=== PATIENT | male | born 1980 | race Caucasian/White ===

== ENCOUNTER 2021-06-30 09:23 | Emergency (ER) | payer OTHER ==
[~2021-06-30] VITALS: Ht 165.1 cm; Wt 68.0 kg
[~2021-06-30 09:23] MED LIST: CLON0.5T PO
[2021-06-30 09:40] VITALS: BP 119/75
[2021-06-30] MEDS ORDERED: LORazepam 1 MG TABLET PO ONE (09:45)
[2021-06-30] MEDS ORDERED: LORA-254 PO (09:57)
--- NOTE | 2021-06-30 09:59 | PHYS DOC ---
Past History Past Medical History: Anxiety (STEFANY SAPP) Past Surgical History: Other (STEFANY SAPP) Smoking: Less than 1pk/day Alcohol Use: Occasionally Drug Use: None (STEFANY SAPP) General Adult EDM: Chief Complaint: MEDICATION REFILL HPI: HPI: Patient is a 40 year old male with history of anxiety who presents with complaints of breakthrough anxiety. Patient was discharged from a psychiatric facility in [place], [place] on 06/06/2021. Patient was discharged with daily medications, but states he threw them away a few days ago. He reports he wanted to "prove to himself he could do it without help." Today, he has complaints of overwhelming anxiety. Patient has a plan to refill his medications once he leaves the department today. He denies SI and HI. Patient has no other complaints at this time. (STEFANY SAPP) Review of Systems: Review of Systems: Constitutional: Denies fever or chills Respiratory: Denies cough or shortness of breath Cardiovascular: Denies chest pain or edema GI: Denies abdominal pain, nausea, vomiting, bloody stools or diarrhea Musculoskeletal: Denies back pain or joint pain Integument: Denies rash or other lesions Neurologic: Denies headache, focal weakness or sensory changes Psychiatric: See HPI (STEFANY SAPP) Allergies: Allergies: Allergies Coded Allergies Type Severity Reaction Last Updated Verified No Known Drug Allergies 10/26/13 No (STEFANY SAPP) Physical Exam: PE: Constitutional: Well developed, well nourished, no acute distress, non-toxic appearance. Cardiovascular:Heart rate regular rhythm, no murmur. Lungs & Thorax: Bilateral breath sounds clear to auscultation. Abdomen: Bowel sounds normal, soft, no tenderness, no masses, no pulsatile masses. Skin: Warm, dry, no erythema, no rash. Extremities: No tenderness, no cyanosis, no clubbing, ROM intact, no edema. Neurologic: Alert and oriented x3, normal motor function, normal sensory function, no focal deficits noted. Psychologic: Patient has fair insight with expressed hope/desire for treatment, good judgement, anxious mood. (STEFANY SAPP) Heart Score: C/O Chest Pain: No (STEFANY SAPP) Course & Med Decision Making: Course & Med Decision Making Pertinent Labs and Imaging studies reviewed. (See chart for details) Patient is not exactly sure of his as needed medications with the doses. He r eports his plan after leaving the department is to get his ID, and [place] [facility] [place] [facility] [place] [facility]. Patient states he has no desire to use any street drugs and does not feel as though he needs to be rehospitalized at this time. After being off of his medications for a few days, he understands the need for them at this period in time. We had a detailed discussion about taking daily anxiolytic medications consistently, and the repercussions of discontinuing these medications suddenly without supervision from a psychologist, psychiatrist or other medical professional. Patient is stable with good judgment and a plan to resume his treatment. He will be provided with 1 mg Ativan here in the department, with a prescription for 5 additional tablets. (STEFANY SAPP) Dragon Disclaimer: Dragon Disclaimer: This electronic medical record was generated, in whole or in part, using a voice recognition dictation system. (STEFANY SAPP) Attending Co-Sign The patient was seen and interviewed as well as examined at the bedside. The chart was reviewed. The case was discussed. Agree with the plan of care. (DOROTHY FRY DO) Departure Departure: Impression: Primary Impression: Anxiety disorder Qualified Codes: F41.1 - Generalized anxiety disorder Disposition: HOME / SELF CARE / HOMELESS Condition: STABLE Referrals: DALIA KAYE MD (PCP) Patient Instructions: Anxiety and Panic Attacks, Cjvy-wz-[id number] Additional Instructions: The posterior prescribed today are for short-term breakthrough anxiety. As discussed, it is important for you to resume taking the medications with which you were discharged. You were provided today with phone number and address for the [facility], which offers free outpatient services. Please return to the emergency department if her anxiety does not get better or worsens, if you develop chest pain, sweating or other new symptoms. Scripts Lorazepam (ATIVAN) 1 Mg Tablet 1 TAB PO PRN 1-2XD PRN for ANXIETY, #5 TAB Take 1 tablet by mouth 1-2 times daily as needed for anxiety. Prov: STEFANY SAPP 06/30/21 STEFANY SAPP Jun 30, 2021 09:59 DOROTHY FRY DO Jun 30, 2021 17:07
== END 2021-06-30 10:14 | disposition home or self-care (01) ==
LOC: ER 09:23
DX: F41.1 Generalized anxiety disorder (principal); F17.200 Nicotine dependence, unspecified, uncomplicated
CPT/HCPCS: 99283

== ENCOUNTER 2021-07-03 08:26 | Emergency (ER) | payer OTHER ==
[~2021-07-03] VITALS: Ht 165.1 cm; Wt 68.0 kg
[~2021-07-03 08:26] MED LIST changes: +LORA-254 PO
--- NOTE | 2021-07-03 09:25 | PHYS DOC ---
Past History Past Medical History: Anxiety (DOROTHY FRY DO) Past Surgical History: Other Additional Past Surgical Histo: SHOULDER (DOROTHY FRY DO) Smoking: Less than 1pk/day Alcohol Use: None Drug Use: None (DOROTHY FRY DO) General Adult EDM: Chief Complaint: depression HPI: HPI: 40-year-old male presents with depression and difficulty coping and processing with his situation. The patient has had some recent relationship issues. He has had some struggles with loss in the past. He tells me that he does not really know how to articulate how he is feeling. He denies suicidal ideation but has expressed violent thoughts about others to the nurse. He did not specifically tell me about this. He has had a history of anxiety. He has been on behavior health medications in the past. He has no medical complaints. Denies fever or chills. (DOROTHY FRY DO) Review of Systems: Review of Systems: Constitutional: Denies fever or chills Eyes: Denies change in visual acuity HENT: Denies nasal congestion or sore throat Respiratory: Denies cough or shortness of breath Cardiovascular: Denies chest pain or edema GI: Denies abdominal pain, nausea, vomiting, bloody stools or diarrhea : Denies dysuria Musculoskeletal: Denies back pain or joint pain Integument: Denies rash Neurologic: Denies headache, focal weakness or sensory changes Endocrine: Denies polyuria or polydipsia Lymphatic: Denies swollen glands Psychiatric: Depression and anxiety (DOROTHY FRY DO) Current Medications: Current Meds: Current Medications Medications (Trade) Dose Ordered Sig/Pablo Start Time Stop Time Status Last Admin Dose Admin Lorazepam (Ativan) 1 mg 1X ONCE 07/03/21 09:15 07/03/21 09:16 UNV (DOROTHY FRY DO) Allergies: Allergies: Allergies Coded Allergies Type Severity Reaction Last Updated Verified No Known Drug Allergies 10/26/13 No (DOROTHY FRY DO) Physical Exam: PE: Constitutional: Well developed, well nourished, no acute distress, non-toxic appearance. [] HENT: Normocephalic, atraumatic, bilateral external ears normal, oropharynx moist, no oral exudates, nose normal. [] Eyes: PERRLA, EOMI, conjunctiva normal, no discharge. [] Neck: Normal range of motion, no tenderness, supple, no stridor. [] Cardiovascular: Heart rate regular rhythm, no murmur [] Lungs & Thorax: Bilateral breath sounds clear to auscultation [] Abdomen: Bowel sounds normal, soft, no tenderness, no masses, no pulsatile masses. [] Skin: Warm, dry, no erythema, no rash. [] Back: No tenderness, no CVA tenderness. [] Extremities: No tenderness, no cyanosis, no clubbing, ROM intact, no edema. [] Neurologic: Alert and oriented X 3, normal motor function, normal sensory functi on, no focal deficits noted. [] Psychologic: Affect normal, judgement normal, mood depressed. [] (DOROTHY FRY DO) EKG: EKG: [] (DOROTHY FRY DO) Radiology/Procedures: Radiology/Procedures: [] (DOROTHY FRY DO) Heart Score: C/O Chest Pain: N/A Risk Factors: Risk Factors: DM, Current or recent (<one month) smoker, HTN, HLP, family hi story of CAD, obesity. Risk Scores: Score 0 - 3: 2.5% MACE over next 6 weeks - Discharge Home Score 4 - 6: 20.3% MACE over next 6 weeks - Admit for Clinical Observation Score 7 - 10: 72.7% MACE over next 6 weeks - Early Invasive Strategies (DOROTHY FRY DO) Course & Med Decision Making: Course & Med Decision Making Pertinent Labs and Imaging studies reviewed. (See chart for details) The patient's labs are unremarkable. He is medically stable for behavioral health evaluation. The behavioral health team has evaluated the patient and determined that he would benefit from inpatient treatment. Placement is pending at this time. I am signing the patient out to the sheet metal production worker at 1800. There have been no complications during my shift. The patient has benefited from 2 doses of 1 mg Ativan for anxiety. [] (DOROTHY FRY DO) Course & Med Decision Making See Dr. Fry chart for details prior shift change. Pt. sleep most of night. Awaiting placement. Impression: 1. Psychosis 2. Schizo affective Disorder 3. Anxiiety. 4. Depression (MICHELLE BAIN MD) Course & Med Decision Making Concern for depression. Patient is medically cleared. Patient accepted at [facility]. No issues during my shift. Patient stable at time of transfer. (LOREE DENSON DO) Dragon Disclaimer: Dragon Disclaimer: This electronic medical record was generated, in whole or in part, using a voice recognition dictation system. (DOROTHY FRY DO) Departure Departure: Impression: Primary Impression: Depression Disposition: 02 [facility] (to [facility], accepted by Dr. Waddell) Condition: STABLE Referrals: PCP,NO (PCP) Dragon Disclaimer This chart was dictated in whole or in part using Voice Recognition software in a busy, high-work load, and often noisy Emergency Department environment. It may contain unintended and wholly unrecognized errors or omissions. (MICHELLE BAIN MD) Dragon Disclaimer This chart was dictated in whole or in part using Voice Recognition software in a busy, high-work load, and often noisy Emergency Department environment. It may contain unintended and wholly unrecognized errors or omissions. (MICHELLE BAIN MD) DOROTHY FRY DO Jul 03, 2021 09:25 MICHELLE BAIN MD Jul 04, 2021 04:52 LOREE DENSON DO Jul 04, 2021 10:44
[2021-07-03 09:35] LABS: BASO # 0.1 x10^3/uL (0.0-0.2); BASO % 1 % (0-3); EOS # 0.2 x10^3/uL (0.0-0.7); EOS % 2 % (0-3); HEMOGLOBIN 13.5 g/dL (13.0-17.5); LYMPH % 23 % (24-48); MEAN CORPUSCULAR HEMOGLOBIN 33 pg (25-35); MEAN CORPUSCULAR HGB CONC 35 g/dL (31-37); MEAN CORPUSCULAR VOLUME 94 fL (79-100); MONO # 0.5 x10^3/uL (0.0-1.1); MONO % 6 % (0-9); NEUT # 6.1 x10^3uL (1.8-7.7); NEUT % 69 % (31-73); PLATELET COUNT 193 x10^3/uL (140-400); RED BLOOD COUNT 4.16 x10^6/uL (4.30-5.70); RED CELL DISTRIBUTION WIDTH 12.7 % (11.5-14.5); WHITE BLOOD COUNT 8.9 x10^3/uL (4.0-11.0)
[2021-07-03 09:46] LABS: CALCIUM 8.2 mg/dL (8.5-10.1); CREATININE 0.7 mg/dL (0.7-1.3); GFR 125.5; POTASSIUM 3.9 mmol/L (3.5-5.1)
[2021-07-03] MEDS: LORazepam 1 MG TABLET PO ONE ×2 (09:46→14:07)
[2021-07-03 09:51] LABS: BARBITURATES NEG (NEG); BENZODIAZEPINES POS (NEG); CANNABINOIDS NEG (NEG); COCAINE NEG (NEG); METHADONE NEG (NEG); OPIATES NEG (NEG); PHENCYCLIDINE NEG (NEG)
[2021-07-03 09:52] LABS: CLARITY,URINE HAZY; COLOR,URINE YELLOW
[2021-07-03 09:52] LABS: ALBUMIN 3.7 g/dL (3.4-5.0); ALBUMIN/GLOBULIN RATIO 1.1 (1.0-1.7); TOTAL BILIRUBIN 0.3 mg/dL (0.2-1.0)
[2021-07-03 09:53] LABS: BACTERIA,URINE 0 /HPF (0-FEW); BILIRUBIN,URINE NEG (NEG); GLUCOSE,URINE NEG (NEG); NITRITE,URINE NEG (NEG); RBC,URINE OCC /HPF (0-2); SQUAMOUS EPITHELIAL CELL,UR OCC /LPF; UROBILINOGEN,URINE 0.2 mg/dL (0.2 mg/dL)
[2021-07-03 10:00] LABS: AMPHETAMINE/METHAMPHETAMINE NEG (NEG)
[2021-07-03] MEDS ORDERED: LORazepam 1 MG TABLET ONE (13:56)
[2021-07-04] MEDS: LORazepam 1 MG TABLET PO ONE ×2 (03:24→09:07)
[2021-07-04 11:10] VITALS: BP 124/79
== END 2021-07-04 11:15 | disposition short-term general hospital (02) ==
LOC: ER 08:26
DX: F32.9 Major depressive disorder, single episode, unspecified (principal); F25.9 Schizoaffective disorder, unspecified; F41.9 Anxiety disorder, unspecified; Z20.822 Contact with and (suspected) exposure to COVID-19
CPT/HCPCS: 80053; 80307; 81001; 85025; 87426; 99285; U0003